=== PATIENT | female | born 2000 | race Caucasian/White ===

== ENCOUNTER 2022-10-06 12:12 | Emergency (ER) | payer OTHER ==
[~2022-10-06] VITALS: Ht 167.6 cm; Wt 70.5 kg
[2022-10-06] MEDS ORDERED: ACETAMINOPHEN 500 MG TAB PO ONE (12:35)
[2022-10-06] MEDS ORDERED: KETOROLAC 30 MG/ML 1ML VIAL IV ONE (12:35)
[2022-10-06] MEDS ORDERED: NS 1,000 ML IV ONE (12:35)
[2022-10-06] MEDS ORDERED: METOCLOPRAMIDE INJ 10MG/2ML VIAL IV ONE (12:35)
[2022-10-06 12:53] LABS: BASO % 0.5 % (0.0-1.0); EOS % 0.3 % (0.0-3.0); HEMATOCRIT 37.5 % (36.0-47.0); LYMPH # 0.7 10^3/uL (1.5-5.0); LYMPH % 12.2 % (24.0-44.0); MEAN CORPUSCULAR HGB CONC 34.7 g/dl (32.0-36.5); MEAN CORPUSCULAR VOLUME 92.4 fl (80.0-96.0); MONO # 0.2 10^3/uL (0.0-0.8); MONO % 3.9 % (2.0-8.0); NEUTROPHILS # 4.8 10^3/uL (1.5-8.5); NEUTROPHILS % 82.9 % (36.0-66.0); PLATELET COUNT, AUTOMATED 208 10^3/uL (150-450); RED BLOOD COUNT 4.06 10^6/uL (4.00-5.40); WHITE BLOOD COUNT 5.8 10^3/uL (4.0-10.0)
[2022-10-06] MEDS ORDERED: levETIRAcetam INJection 1,000 MG in D5W 100 ML IV ONE (13:10)
[2022-10-06 13:19] LABS: ETHYL ALCOHOL (ETHANOL) < 0.003 % (0.000-0.010)
[2022-10-06 13:25] LABS: ALBUMIN 4.6 G/DL (3.2-5.2); ALKALINE PHOSPHATASE 75 U/L (46-116); ALT/SGPT 61 U/L (7.0-40); AST/SGOT 27 U/L (<34); BILIRUBIN,DIRECT 0.1 MG/DL (<0.4); BILIRUBIN,TOTAL 0.4 MG/DL (0.3-1.2); BLOOD UREA NITROGEN 6 MG/DL (9-23); CALCIUM LEVEL 9.4 MG/DL (8.5-10.1); CARBON DIOXIDE LEVEL 22 MMOL/L (20-31); CHLORIDE LEVEL 108 MMOL/L (98-107); CREATININE FOR GFR 0.73 MG/DL (0.55-1.30); GLOMERULAR FILTRATION RATE > 60.0 (>60); GLUCOSE, FASTING 101 MG/DL (60-100); HCG, SERUM QUALITATIVE NEGATIVE (NEGATIVE); POTASSIUM SERUM 4.7 MMOL/L (3.5-5.1); SODIUM LEVEL 139 MMOL/L (136-145); TOTAL PROTEIN 7.1 G/DL (5.7-8.2)
[2022-10-06 13:30] LABS: AMPHETAMINES LEVEL URINE NEGATIVE (NEGATIVE); BARBITURATES URINE NEGATIVE (NEGATIVE); BENZODIAZEPINES URINE NEGATIVE (NEGATIVE); CANNABINOIDS URINE NEGATIVE (NEGATIVE); COCAINE METABOLITE URINE NEGATIVE (NEGATIVE); METHADONE URINE NEGATIVE (NEGATIVE); OPIATES URINE NEGATIVE (NEGATIVE); PHENCYCLIDINE URINE NEGATIVE (NEGATIVE)
[2022-10-06 15:00] VITALS: BP 110/63
[2022-10-10 15:08] LABS: LAMOTRIGINE (LAMICTAL) 5.1 ug/mL (2.0-20.0); LEVETIRACETAM (KEPPRA) 3.8 ug/mL (10.0-40.0)
== END 2022-10-06 15:25 | disposition home or self-care (01) ==
LOC: M ED 12:12 → EDBD 12:12 → M ED 15:25
DX: G40.909 Epilepsy, unspecified, not intractable, without status epilepticus (principal)
CPT/HCPCS: 80048; 80076; 80175; 80180; 80307; 82077; 82330; 83605; 83735; 84703; 85025; 93041; 94760; 96361; 96374; 96375; 99285; J1885; J1953; J2765